=== PATIENT | male | born 1995 | race Caucasian/White ===

== ENCOUNTER 2019-06-29 18:56 | Emergency (ER) | payer BC, SELFPAY ==
[2019-06-29] MEDS ORDERED: HYDROcodone/Acetaminophen 10/325 mg Tablet ONE (19:07)
== END 2019-06-29 19:17 | disposition home or self-care (01) ==
LOC: ERS 18:56
DX: H66.012 Acute suppurative otitis media with spontaneous rupture of ear drum, left ear (principal); F17.210 Nicotine dependence, cigarettes, uncomplicated
CPT/HCPCS: 99282

== ENCOUNTER 2019-08-01 19:39 | Emergency (ER) | payer OTHER, SELFPAY | END 2019-08-01 22:07 | disposition home or self-care (01) | LOC: ERS 19:39 | DX: J11.1 Influenza due to unidentified influenza virus with other respiratory manifestations (principal); Z20.828 Contact with and (suspected) exposure to other viral communicable diseases; F17.210 Nicotine dependence, cigarettes, uncomplicated | CPT/HCPCS: 87081; 87430; 87804; 99283 ==

== ENCOUNTER 2020-05-28 20:17 | Emergency (ER) | payer SELFPAY ==
--- NOTE | 2020-05-28 21:11 | RAD ---
3 views left ankle: 05/28/2020 COMPARISON: None HISTORY: Injury, trauma, pain FINDINGS: No fracture or dislocation. No radiopaque foreign body or subcutaneous gas. IMPRESSION: No acute findings.
== END 2020-05-28 22:31 | disposition home or self-care (01) ==
LOC: ERS 20:17
DX: S93.402A Sprain of unspecified ligament of left ankle, initial encounter (principal); F17.210 Nicotine dependence, cigarettes, uncomplicated; V86.56XA Driver of dirt bike or motor/cross bike injured in nontraffic accident, initial encounter

== ENCOUNTER 2024-02-08 17:11 | Emergency (ER) | payer OTHER, SELFPAY | END 2024-02-08 20:23 | LOC: EEVIPCON 17:11 → ERS 17:11 | DX: S62.326A Displaced fracture of shaft of fifth metacarpal bone, right hand, initial encounter for closed fracture (principal); F17.210 Nicotine dependence, cigarettes, uncomplicated; W22.8XXA Striking against or struck by other objects, initial encounter | CPT/HCPCS: 29125; 99283 ==